=== PATIENT | female | born 1945 | race Caucasian/White ===

== ENCOUNTER 2021-07-13 06:11 | Emergency (ER) | payer MEDICARE ==
[~2021-07-13 06:11] MED LIST: ATENOLOL100 MG PO; ATORVASTATIN CA20 MG PO; CIPRO500 M1 PO; GLIPIZIDE10 MG PO; IMODIUM2 MG PO; LEVEMIR FL100 UNIT/1 SC; METRONIDAZOLE500 MG PO; RANITIDINE HCL150 MG PO; TRADJENTA5 MG PO; TRIAMTERENE-HC1 EAC1 PO; ZANTAC150 MG PO; ZOFRAN4 MG PO
[2021-07-13 06:34] LABS: BASOPHIL 0.2 % (0-2); EOSINOPHIL 0.7 % (0-7); HCT 44.8 % (37.0-47.0); HGB 15.6 g/dl (12.5-16.0); LYMPHOCYTE 25.2 % (15-48); MCH 30.9 pg (25.0-31.0); MCHC 34.8 g/dL (32.0-36.0); MCV 88.7 fL (78.0-100.0); MONOCYTE 10.5 % (0-12); MPV 9.1 fL (6.0-9.5); NRBC 0; PLT 295 K/uL (150-400); RBC 5.05 M/uL (4.20-5.40); RDW 12.2 % (11.5-14.0); WBC 9.4 K/uL (4.0-10.5)
[2021-07-13 07:19] LABS: ALBUMIN 3.9 g/dL (3.4-5.0); BILIRUBIN - TOTAL 0.8 mg/dL (0.2-1.0); BUN/CREAT RATIO (CALC) 13.9 RATIO; CREATININE 0.79 mg/dL (0.51-0.95); GLOBULIN (CALCULATION) 4.3 g/dL; POTASSIUM 3.4 mmol/L (3.5-5.1); TOTAL PROTEIN 8.2 g/dL (6.4-8.2)
[2021-07-13 09:10] LABS: BILIRUBIN NEGATIVE (NEGATIVE); BLOOD NEGATIVE Ery/uL (NEGATIVE); CLARITY CLEAR (CLEAR); COLOR YELLOW (YELLOW); GLUCOSE (U) 2+ mg/dL (NORMAL); LEUKOCYTES NEGATIVE Leu/uL (NEGATIVE); NITRITE NEGATIVE (NEGATIVE); PROTEIN NEGATIVE (NEGATIVE)
[2021-07-13] MEDS ORDERED: ONDANSETRON ODT4 MG PO (09:25)
[2021-07-13] MEDS ORDERED: NORCO 5-325 TA1 EACH PO (09:25)
[2021-07-13] MEDS ORDERED: METRONIDAZOLE500 MG PO (09:25)
[2021-07-13] MEDS ORDERED: CIPRO500 MG PO (09:25)
[2021-07-14] MEDS ORDERED: AUGMENTIN 875-1 EACH PO (14:14)
== END 2021-07-13 10:00 | disposition home or self-care (01) ==
LOC: FER 06:11
PROVIDERS: Emergency Medicine
DX: K57.32 Diverticulitis of large intestine without perforation or abscess without bleeding (principal); E11.9 Type 2 diabetes mellitus without complications
CPT/HCPCS: 36415; 80053; 81003; 83690; 85025; J1170; J2405; J7030

== ENCOUNTER 2021-07-13 16:14 | Inpatient (IN) | payer MEDICARE ==
[~2021-07-13] VITALS: Ht 157.5 cm; Wt 66.4 kg
[~2021-07-13 16:14] MED LIST changes: +CIPRO500 MG PO; +NORCO 5-325 TA1 EACH PO; +ONDANSETRON ODT4 MG PO
[2021-07-13 18:37] LABS: BASOPHIL 0.2 % (0-2); EOSINOPHIL 0.2 % (0-7); HCT 39.5 % (37.0-47.0); HGB 13.6 g/dl (12.5-16.0); LYMPHOCYTE 9.4 % (15-48); MCH 30.2 pg (25.0-31.0); MCHC 34.4 g/dL (32.0-36.0); MCV 87.8 fL (78.0-100.0); MONOCYTE 9.6 % (0-12); MPV 9.2 fL (6.0-9.5); NEUTROPHIL 80.3 % (41-80); NRBC 0; PLT 221 K/uL (150-400); RDW 12.1 % (11.5-14.0); WBC 6.2 K/uL (4.0-10.5)
[2021-07-13 18:45] LABS: BUN/CREAT RATIO (CALC) 16.7 RATIO; CREATININE 0.72 mg/dL (0.51-0.95); POTASSIUM 3.6 mmol/L (3.5-5.1)
[2021-07-14 06:25] LABS: BASOPHIL 0.2 % (0-2); EOSINOPHIL 0 % (0-7); HCT 36.9 % (37.0-47.0); HGB 12.8 g/dl (12.5-16.0); LYMPHOCYTE 12.1 % (15-48); MCH 30.5 pg (25.0-31.0); MCHC 34.7 g/dL (32.0-36.0); MCV 88.1 fL (78.0-100.0); MONOCYTE 11.6 % (0-12); MPV 8.9 fL (6.0-9.5); NEUTROPHIL 75.4 % (41-80); NRBC 0; PLT 218 K/uL (150-400); RBC 4.19 M/uL (4.20-5.40); RDW 12.1 % (11.5-14.0); WBC 5.8 K/uL (4.0-10.5)
[2021-07-14 06:42] LABS: ALBUMIN 3.3 g/dL (3.4-5.0); BILIRUBIN - TOTAL 0.6 mg/dL (0.2-1.0); BUN/CREAT RATIO (CALC) 14.5 RATIO; CREATININE 0.76 mg/dL (0.51-0.95); GLOBULIN (CALCULATION) 2.9 g/dL; MAGNESIUM 1.7 mg/dL (1.8-2.4); PHOSPHORUS 2.5 mg/dL (2.6-4.7); POTASSIUM 3.5 mmol/L (3.5-5.1)
[2021-07-14 06:48] LABS: TOTAL PROTEIN 6.2 g/dL (6.4-8.2)
[2021-07-14] MEDS ORDERED: AUGMENTIN 875-1 EACH PO (14:14)
== END 2021-07-14 15:05 | disposition home or self-care (01) | DRG 392 ==
LOC: FER 16:14 → FMS 18:03
PROVIDERS: Emergency Medicine; Nurse Practitioner; ADMIT Internal Medicine
DX: K57.32 Diverticulitis of large intestine without perforation or abscess without bleeding (principal); Z20.822 Contact with and (suspected) exposure to COVID-19; E11.9 Type 2 diabetes mellitus without complications; K21.9 Gastro-esophageal reflux disease without esophagitis; I10 Essential (primary) hypertension; Z79.84 Long term (current) use of oral hypoglycemic drugs; Z79.4 Long term (current) use of insulin; Z79.899 Other long term (current) drug therapy; Z88.2 Allergy status to sulfonamides; Z88.8 Allergy status to other drugs, medicaments and biological substances; Z90.710 Acquired absence of both cervix and uterus; Z90.49 Acquired absence of other specified parts of digestive tract; Z98.890 Other specified postprocedural states
CPT/HCPCS: 36415; 80048; 80053; 83605; 83735; 84100; 84145; 85025; 94010; 99284; C9113; J0780; J1170; J1650; J1815; J1956; J2543; J7030; U0002

== ENCOUNTER → 2021-09-06 | Day surgery (SDC) | payer MEDICARE ==
[~2021-09-06] VITALS: Ht 157.5 cm; Wt 65.8 kg
[~2021-09-06] MED LIST changes: +AUGMENTIN 875-1 EACH PO; +HAIR, SKIN & N1 EACH PO; +HYZAAR 50-12.51 EACH PO; +KLOR-CON M 1010 MEQ PO; +METAMUCIL1 DOSE PO
== END | disposition home or self-care (01) ==
LOC: FAS 08:15
DX: K57.30 Diverticulosis of large intestine without perforation or abscess without bleeding (principal); K64.4 Residual hemorrhoidal skin tags; I10 Essential (primary) hypertension; E78.00 Pure hypercholesterolemia, unspecified; E11.9 Type 2 diabetes mellitus without complications; K21.9 Gastro-esophageal reflux disease without esophagitis; F41.9 Anxiety disorder, unspecified; Z86.010 Personal history of colon polyps; Z88.8 Allergy status to other drugs, medicaments and biological substances; Z88.2 Allergy status to sulfonamides; Z79.4 Long term (current) use of insulin; Z79.899 Other long term (current) drug therapy
CPT/HCPCS: J1610; J2704; J7120

== ENCOUNTER 2021-11-08 14:34 | Emergency (ER) | payer MEDICARE ==
[2021-11-08 15:17] LABS: BASOPHIL 0.3 % (0-2); EOSINOPHIL 0.7 % (0-7); HCT 43.9 % (37.0-47.0); HGB 15.4 g/dl (12.5-16.0); LYMPHOCYTE 20.9 % (15-48); MCH 30.5 pg (25.0-31.0); MCHC 35.1 g/dL (32.0-36.0); MCV 86.9 fL (78.0-100.0); MPV 9.5 fL (6.0-9.5); NEUTROPHIL 70.6 % (41-80); NRBC 0; PLT 300 K/uL (150-400); RBC 5.05 M/uL (4.20-5.40); RDW 12.2 % (11.5-14.0); WBC 10.3 K/uL (4.0-10.5)
[2021-11-08 15:47] LABS: BUN/CREAT RATIO (CALC) 16.2 RATIO; CREATININE 0.8 mg/dL (0.51-0.95); POTASSIUM 3.7 mmol/L (3.5-5.1)
[2021-11-08 16:43] LABS: BILIRUBIN NEGATIVE (NEGATIVE); BLOOD NEGATIVE Ery/uL (NEGATIVE); CLARITY CLEAR (CLEAR); COLOR YELLOW (YELLOW); GLUCOSE (U) NORMAL (NORMAL); LEUKOCYTES 1+ Leu/uL (NEGATIVE); NITRITE NEGATIVE (NEGATIVE); PROTEIN TRACE (LOW) mg/dL (NEGATIVE); UROBILINOGEN 0.2 mg/dL (0.2-1.0)
[2021-11-08 16:57] LABS: MUCOUS TRACE; SQUAMOUS EPITHELIAL CELLS RARE
[2021-11-08] MEDS ORDERED: CEPHALEXIN500 MG PO (16:59)
== END 2021-11-08 17:06 | disposition home or self-care (01) ==
LOC: FER 14:34
PROVIDERS: Nurse Practitioner Family
DX: N39.0 Urinary tract infection, site not specified (principal); I10 Essential (primary) hypertension; E11.9 Type 2 diabetes mellitus without complications
CPT/HCPCS: 36415; 80048; 81001; 85025; J1885; J2405

== ENCOUNTER 2021-11-11 19:13 | Emergency (ER) | payer MEDICARE ==
[~2021-11-11 19:13] MED LIST changes: +CEPHALEXIN500 MG PO
[2021-11-11 22:54] LABS: BASOPHIL 0.3 % (0-2); EOSINOPHIL 0.5 % (0-7); HGB 13.8 g/dl (12.5-16.0); LYMPHOCYTE 17.4 % (15-48); MCH 30.8 pg (25.0-31.0); MCHC 35.4 g/dL (32.0-36.0); MCV 87.1 fL (78.0-100.0); MONOCYTE 8.1 % (0-12); MPV 9.4 fL (6.0-9.5); NEUTROPHIL 73.2 % (41-80); NRBC 0; PLT 258 K/uL (150-400); RBC 4.48 M/uL (4.20-5.40); RDW 12.1 % (11.5-14.0); WBC 10.7 K/uL (4.0-10.5)
[2021-11-11 23:14] LABS: ALBUMIN 3.5 g/dL (3.4-5.0); BILIRUBIN - TOTAL 0.5 mg/dL (0.2-1.0); BUN/CREAT RATIO (CALC) 14.1 RATIO; CREATININE 0.71 mg/dL (0.51-0.95); POTASSIUM 3.7 mmol/L (3.5-5.1); TOTAL PROTEIN 7.5 g/dL (6.4-8.2)
[2021-11-11 23:56] LABS: BILIRUBIN NEGATIVE (NEGATIVE); BLOOD NEGATIVE Ery/uL (NEGATIVE); CLARITY CLEAR (CLEAR); COLOR YELLOW (YELLOW); GLUCOSE (U) 3+ mg/dL (NORMAL); LEUKOCYTES 1+ Leu/uL (NEGATIVE); NITRITE NEGATIVE (NEGATIVE); PROTEIN TRACE (LOW) mg/dL (NEGATIVE); UROBILINOGEN 0.2 mg/dL (0.2-1.0)
[2021-11-12 00:01] LABS: URINARY RBC RARE
[2021-11-12 00:02] LABS: BACTERIA 2+
[2021-11-12] MEDS ORDERED: ONDANSETRON ODT4 MG PO (00:56)
[2021-11-12] MEDS ORDERED: MACROBID100 MG PO (00:56)
[2021-11-12] MEDS ORDERED: DIFLUCAN 100MG100 MG PO (00:56)
[2021-11-12] MEDS ORDERED: AMOX TR-K CLV1 EAC4 PO (00:56)
[2021-11-13] MEDS ORDERED: CIPRO500 MG PO (15:34)
[2021-11-13] MEDS ORDERED: NORCO 5-325 TA1 EACH PO (15:34)
[2021-11-13] MEDS ORDERED: METRONIDAZOLE500 MG PO (15:34)
[2021-11-13] MEDS ORDERED: ONDANSETRON ODT4 MG PO (15:34)
== END 2021-11-12 01:08 | disposition home or self-care (01) ==
LOC: FER 19:13
PROVIDERS: Nurse Practitioner Family
DX: N39.0 Urinary tract infection, site not specified (principal); H66.91 Otitis media, unspecified, right ear; E11.9 Type 2 diabetes mellitus without complications; I10 Essential (primary) hypertension; Z79.84 Long term (current) use of oral hypoglycemic drugs; Z88.2 Allergy status to sulfonamides
CPT/HCPCS: 36415; 80053; 81001; 85025; 87088; J1885; J2405; J7030